=== PATIENT | male | born 1995 | race Caucasian/White ===

== ENCOUNTER 2017-05-08 10:07 | Day surgery (SDC) | payer BC, OTHER ==
[2017-05-08] MEDS ORDERED: D5 LR 1000 ML 1,000 ML IV ONE (10:17)
[2017-05-08] MEDS ORDERED: XYLOCAINE 2 % (PLAIN) ONE (10:59)
[2017-05-08] MEDS ORDERED: DIPRIVAN VIAL 20 ML ONE ×2 (10:59→11:08)
[2017-05-08 13:43] VITALS: BP 108/68
== END 2017-05-08 11:42 | disposition home or self-care (01) ==
LOC: SURG1 10:07
PROVIDERS: ATTEND Internal Medicine Gastroenterology
PROC: 0DBE8ZX Excision of Large Intestine, Via Natural or Artificial Opening Endoscopic, Diagnostic (ICD-10-PCS; principal; 2017-05-08 16:15)
PROC: 0DJD8ZZ Inspection of Lower Intestinal Tract, Via Natural or Artificial Opening Endoscopic (ICD-10-PCS; principal; 2017-05-08 16:15)
DX: R19.4 Change in bowel habit (principal); R10.31 Right lower quadrant pain; R10.32 Left lower quadrant pain; K64.0 First degree hemorrhoids
CPT/HCPCS: A4217; J2001; J3490; J7120